=== PATIENT | male | born 1965 | race Caucasian/White ===

== ENCOUNTER 2017-04-16 05:45 | Day surgery (SDC) | payer OTHER ==
[2017-04-16] MEDS ORDERED: LACTATED RINGERS 1,000 ML ONE (06:46)
[2017-04-16 09:45] VITALS: BP 112/74; TEMP 96.8; O2SAT 97
--- NOTE | 2017-04-16 09:49 | OP ---
DATE OF PROCEDURE: 04/16/17 PREOPERATIVE DIAGNOSIS: 1. Colon cancer screen. POSTOPERATIVE DIAGNOSIS: 1. Colon cancer screen. 2. Diverticulosis of the sigmoid colon. PROCEDURE: 1. Colonoscopy. SURGEON: Gregorio Hooker MD. ANESTHESIA: MAC by Burke Roblero CRNA. ESTIMATED BLOOD LOSS: None. COMPLICATIONS: None apparent. TECHNIQUE: After informed consent was obtained from the patient, the patient was taken to the Endoscopy Suite and put in the left lateral decubitus position. After adequate IV sedation was obtained, a digital rectal exam was performed which revealed decreased sphincter tone, no intraluminal masses, and a smooth, 1+, anodular prostate. The colonoscope was then passed with good visualization all the way through the colon. The bowel prep was good. The colon was long and redundant and lots of maneuvering had to be utilized to reach the cecum. The cecum was identified by the presence of ileocecal valve. The scope was then withdrawn slowly over the next 10 minutes and a good look at the colonic mucosa was obtained. The patient was noted to have a few small diverticula in the sigmoid region, but otherwise had a normal examination. The scope was removed. The patient tolerated the procedure well. The patient was transported to the outpatient area in good condition. He is recommended to stay on a high fiber diet. He will followup with me on a p.r.n. basis. #[id number] [facility] [place] [facility]
[2017-04-16] MEDS ORDERED: PROPOFOL 200 MG/20 ML VIAL IV ONE (10:00)
[2017-04-16] MEDS ORDERED: LIDOCAINE 1% 10 ML VIAL INJ ONE (10:00)
== END 2017-04-16 09:10 | disposition home or self-care (01) ==
LOC: AMB 05:45
PROVIDERS: ATTEND Family Medicine
DX: Z12.11 Encounter for screening for malignant neoplasm of colon (principal); K57.30 Diverticulosis of large intestine without perforation or abscess without bleeding; N40.0 Benign prostatic hyperplasia without lower urinary tract symptoms; E78.00 Pure hypercholesterolemia, unspecified; Z88.0 Allergy status to penicillin; Z79.899 Other long term (current) drug therapy
CPT/HCPCS: 00812; 45378; J3490; J7120

== ENCOUNTER → 2018-02-15 | Outpatient (CLI) | payer OTHER ==
--- NOTE | 2018-02-17 08:06 | RAD ---
EXAM DESCRIPTION: Knee,Right Complete CLINICAL HISTORY: 52 years Male, PAIN IN RIGHT KNEE TECHNIQUE: 4 views of the right knee were performed. COMPARISON: None available. FINDINGS: The visualized bones appear well mineralized. No acute fracture or dislocation. 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 Changes of the medial collateral ligament repair are identified. Small suprapatellar joint effusion is noted. The soft tissues appear grossly unremarkable. 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 Electronically signed by: Shun Montalvo MD 02/17/2018 8:04 AM [facility]
--- NOTE | 2018-02-17 08:07 | RAD ---
EXAM DESCRIPTION: Pelvis CLINICAL HISTORY: 52 years Male, PAIN IN RIGHT HIP COMPARISON: None. TECHNIQUE: AP radiograph of the pelvis was performed. FINDINGS: The pelvic ring appears grossly intact on this single AP radiograph. No acute fracture or dislocation. Bilateral sacroiliac joints appear normal. Mild degenerative changes are identified in bilateral hip joints. The visualized lumbo-sacral spine demonstrates mild degenerative changes. IMPRESSION: Mild bilateral hip osteoarthritis. Electronically signed by: Shun Montalvo MD 02/17/2018 8:05 AM [facility]
== END ==
LOC: RAD 09:01
PROVIDERS: ATTEND Orthopaedic Surgery
DX: M25.561 Pain in right knee (principal); M25.551 Pain in right hip; M17.11 Unilateral primary osteoarthritis, right knee; M16.0 Bilateral primary osteoarthritis of hip